=== PATIENT | female | born 1960 | race Caucasian/White ===

== ENCOUNTER 2017-02-04 09:30 | Day surgery (SDC) | payer OTHER ==
[2017-02-03 16:23] VITALS: BMI 27.9
[2017-02-04] MEDS ORDERED: Oxymetazoline HCl 0.05% ( 15 ML ) ONE (10:03)
[2017-02-04] MEDS ORDERED: Lidocaine 1% w/Epinephrine 1:200K 30 ML VIAL ONE (12:13)
[2017-02-04] MEDS ORDERED: Bacitracin Zinc Ointment 30 gm TUBE ONE (12:13)
[2017-02-04] MEDS ORDERED: Fentanyl 100 MCG/2 ML VIAL ONE ×2 (12:16→13:41)
[2017-02-04] MEDS ORDERED: Propofol 200 MG/20 ML VIAL ONE (12:27)
[2017-02-04] MEDS ORDERED: Dexamethasone 20 MG/5 ML VIAL ONE (12:27)
[2017-02-04] MEDS ORDERED: Lidocaine 1% PF 5 ML VIAL ONE (12:27)
[2017-02-04] MEDS ORDERED: Glycopyrrolate 0.2 MG/ML 5 ML SYRINGE ONE (12:27)
[2017-02-04] MEDS ORDERED: Ondansetron HCl/PF 4 MG/2 ML Vial ONE (12:27)
[2017-02-04] MEDS ORDERED: ePHEDrine/0.9% NaCl/PF SYRINGE 50 mg/10 ml ONE (12:27)
[2017-02-04 13:48] LABS: Hematocrit 46.6 % (36.0-47.0)
[2017-02-04] MEDS ORDERED: Ondansetron HCl/PF 4 MG/2 ML Vial IVP PRN (14:19)
[2017-02-04] MEDS ORDERED: Non-Formulary Medication 1 EACH PO PRN (14:19)
[2017-02-04] MEDS ORDERED: Promethazine HCl 25 MG/ML VIAL IM/IV PRN (14:19)
[2017-02-04] MEDS ORDERED: HYDROcodone/Acetaminophen 5/325 mg Tablet ONE (16:31)
--- NOTE | 2017-02-05 00:11 | OP ---
PREOPERATIVE DIAGNOSES: 1. Chronic rhinosinusitis. 2. Nasal septal deviation. 3. Bilateral inferior turbinate hypertrophy. 4. Nasal obstruction. POSTOPERATIVE DIAGNOSES: 1. Chronic rhinosinusitis. 2. Nasal septal deviation. 3. Bilateral inferior turbinate hypertrophy. 4. Nasal obstruction. PROCEDURES: 1. Bilateral endoscopic sinus surgery total ethmoidectomies. 2. Bilateral endoscopic sinus surgery maxillary antrostomies. 3. Bilateral endoscopic sinus surgery frontal sinusotomy. 4. Bilateral endoscopic sinus surgery sphenoidotomies. 5. Nasal septoplasty. 6. Bilateral inferior turbinate submucosal resection. SURGEON: Russel Becker M.D. ESTIMATED BLOOD LOSS: 50 mL COMPLICATIONS: None. ANESTHESIA: GETA. PROCEDURE IN DETAIL: The patient was taken to the operating room and placed supine on the table. Ge neral endotracheal anesthesia was obtained by the Anesthesia staff. Tube was secured in the left lo wer lip. The patient was then placed in the beach chair position, and Afrin pledgets were placed in the nasal cavity. Injections of 1% lidocaine with 1:100,000 epinephrine were made into the nasal sep ernesto as well as the inferior turbinates. The patient was then prepped and draped in standard surgical fashion for nasal surgery. Following this, the Afrin pledgets were removed. A [place] incision was made on the left nasal septum. Submucoperichondrial dissection was performed. The deviated portion s of the septum included portions of the cartilage and the bony septum. These isolated areas were re moved using three cutting rongeurs. There was noted to be a large dorsal and caudal strut left intac t for support of the nose. The mucoperichondrial flaps were then reapproximated using a 4-0 gut stit ch. Any straight pieces of cartilage were crushed prior to this and placed between the mucoperichond rial flaps. Following this, the inferior turbinates were then punctured with a submucosal coblation wand, and submucosal coblations were performed of multiple areas of the inferior portion of the anter ior inferior turbinate. Please note that the microdebrider was used to submucosally resect the anterior and inferior portions of the inferior turbinates bilaterally. Following this, the 0-degree scope was advanced into the mi ddle meatus where the middle turbinate was gently medialized using a [place] elevator. The uncinate pr ocess was identified and was anteriorly fractured using the ball-ended probe bilaterally. The uncina te process was then removed using the straight microdebrider and upbiting [place] forceps. Followi ng this, the natural maxillary ostia were identified and were gently widened using the straight [place] forceps and the microdebrider bilaterally. Following this, the ethmoidal bulla was identified a nd was punctured on its medial and inferior aspect and was removed. Following this, the grand lamell a was identified and was punctured into the posterior ethmoidal cells. Working from posterior to ant erior, the ethmoidal cells were opened in a mucosal-sparing technique. Following this, the sphenoid sinuses were approached through the ethmoidectomies and the sphenoid ostia were gently widened using the straight microdebrider medially and inferiorly bilaterally. Following this, a 45-degree scope an d the 40-degree upbiting microdebrider were then used to further resect the frontal sinus recess cell s and open the frontal sinus ostia bilaterally. Following this, the nasal cavity was irrigated. Laurita oPacks were placed within the middle meatus. [place] splints were placed and secured. The patient shelly erated the procedure well.
--- NOTE | 2017-02-05 07:56 | EKG ---
Test Reason : PREOP Blood Pressure : / mmHG Vent. Rate : 065 BPM Atrial Rate : 065 BPM P-R Int : 150 ms QRS Dur : 086 ms QT Int : 422 ms P-R-T Axes : 033 047 045 degrees QTc Int : 438 ms Normal sinus rhythm with sinus arrhythmia Low voltage QRS Borderline ECG No previous ECGs available Confirmed by FILEMON SCOTT, DR. Zamudio ([id number]) on 02/05/2017 7:56:01 AM Referred By: TATIANA Confirmed By:DR. Lizz COLBERT MD
== END 2017-02-04 17:30 | disposition home or self-care (01) ==
LOC: SDC 09:30
PROVIDERS: ATTEND Otolaryngology Plastic Surgery within the Head & Neck
PROC: 09TU8ZZ Resection of Right Ethmoid Sinus, Via Natural or Artificial Opening Endoscopic (ICD-10-PCS; principal; 2017-02-04)
PROC: 09BS8ZZ Excision of Right Frontal Sinus, Via Natural or Artificial Opening Endoscopic (ICD-10-PCS; principal; 2017-02-04)
PROC: 099Q8ZZ Drainage of Right Maxillary Sinus, Via Natural or Artificial Opening Endoscopic (ICD-10-PCS; principal; 2017-02-04)
PROC: 09CW8ZZ Extirpation of Matter from Right Sphenoid Sinus, Via Natural or Artificial Opening Endoscopic (ICD-10-PCS; principal; 2017-02-04)
PROC: 09CX8ZZ Extirpation of Matter from Left Sphenoid Sinus, Via Natural or Artificial Opening Endoscopic (ICD-10-PCS; principal; 2017-02-04)
PROC: 09RM47Z Replacement of Nasal Septum with Autologous Tissue Substitute, Percutaneous Endoscopic Approach (ICD-10-PCS; principal; 2017-02-04)
PROC: 09TV8ZZ Resection of Left Ethmoid Sinus, Via Natural or Artificial Opening Endoscopic (ICD-10-PCS; principal; 2017-02-04)
PROC: 099R8ZZ Drainage of Left Maxillary Sinus, Via Natural or Artificial Opening Endoscopic (ICD-10-PCS; principal; 2017-02-04)
PROC: 09BT8ZZ Excision of Left Frontal Sinus, Via Natural or Artificial Opening Endoscopic (ICD-10-PCS; principal; 2017-02-04)
PROC: 09TL8ZZ Resection of Nasal Turbinate, Via Natural or Artificial Opening Endoscopic (ICD-10-PCS; principal; 2017-02-04)
DX: J32.9 Chronic sinusitis, unspecified (principal); J34.2 Deviated nasal septum; J34.3 Hypertrophy of nasal turbinates; I10 Essential (primary) hypertension; E66.9 Obesity, unspecified; F41.9 Anxiety disorder, unspecified; Z68.27 Body mass index [BMI] 27.0-27.9, adult; Z79.899 Other long term (current) drug therapy; Z98.51 Tubal ligation status; Z90.49 Acquired absence of other specified parts of digestive tract; Z90.710 Acquired absence of both cervix and uterus; Z98.890 Other specified postprocedural states
CPT/HCPCS: 85014; 93005; 93010; 96374; J0131; J1100; J2001; J2405; J2704; J3010

== ENCOUNTER 2017-02-13 13:32 | Day surgery (SDC) | payer OTHER ==
[2017-02-13] MEDS ORDERED: Dexamethasone 20 MG/5 ML VIAL ONE (14:12)
[2017-02-13] MEDS ORDERED: PHENYLEPHRINE-NS 100 MCG/ML 10 ML SYRINGE ONE (14:12)
[2017-02-13] MEDS ORDERED: Propofol 200 MG/20 ML VIAL ONE (14:12)
[2017-02-13] MEDS ORDERED: Succinylcholine Chloride 20 MG/ML 10 ml SYRINGE FS ONE (14:12)
[2017-02-13] MEDS ORDERED: Lidocaine 1% PF 5 ML VIAL ONE (14:12)
[2017-02-13] MEDS ORDERED: Ondansetron HCl/PF 4 MG/2 ML Vial ONE (14:12)
[2017-02-13] MEDS ORDERED: Oxymetazoline HCl 0.05% ( 15 ML ) ONE (14:37)
[2017-02-13] MEDS ORDERED: Lidocaine 1% w/Epinephrine 1:200K 30 ML VIAL ONE (14:37)
[2017-02-13] MEDS ORDERED: EPINEPHrine 1 MG/ML AMP ONE (14:52)
[2017-02-13] MEDS ORDERED: Midazolam HCl 2 mg/2 ml Vial ONE (15:02)
[2017-02-13] MEDS ORDERED: Fentanyl 100 MCG/2 ML VIAL ONE ×3 (15:02→16:56)
--- NOTE | 2017-02-14 00:13 | OP ---
DATE OF PROCEDURE 02/13/2017. PREOPERATIVE DIAGNOSIS: Epistaxis. POSTOPERATIVE DIAGNOSIS: Epistaxis. PROCEDURE PERFORMED: Endoscopic control of epistaxis. SURGEON: Mike Correia M.D. BAR ROLLER: None. ANESTHESIA: General endotracheal anesthetic. ESTIMATED BLOOD LOSS: 150 mL FLUIDS: 700 mL crystalloid. COMPLICATIONS: None. Packing, x2, nasal tampons placed bilaterally in the middle meatus. FINDINGS: 1. Left anterior ethmoid arterial bleed. 2. Very oozy ethmoidal tissue on the right. INDICATIONS FOR SURGERY: The patient is a 56-year-old woman, who is approximately a week and a half to 2 weeks out from endoscopic sinus surgery and septoplasty. She had over 1 day of bleeding that wa s progressively worsening and brought to the operating room today for control of epistaxis. DESCRIPTION OF OPERATION: After properly identifying the patient, she was brought to the operating r oom and placed in the operating room table, placed on adequate general endotracheal anesthetic withou t difficulty. Time out was performed prior to beginning the procedure. The patient was prepped and draped in the usual sterile fashion. The nose was endoscopically examined. All clots were removed and then epinephrine pledgets placed pr imarily on the left side in the middle meatus region. This was allowed to sit for several minutes an d then removed. Obvious source of bleeding was noted on the left lateral superior operative site con sistent with an anterior ethmoid artery. This was cauterized with suction Bovie until it was no long er bleeding. I then suctioned out clots, really did not see any other source of bleeding on this lef t side. I placed more epinephrine pledgets and then addressed the other side. Opened up the middle meatus was very tight with a [place] elevator and got in there with a suction and suctioned out a lot o f clot, postoperative changes noted and there was some oozing, but no obvious active bleeding. This was not side that she was bleeding from over the last day or so either, but it was oozing up that I w ent ahead and put a pack of the nasal tampon pack in the middle meatus on this side as well. I allow ed the patient to set for several minutes suctioning and injecting Afrin into the nasal packing. The re was still a very mild trickle on that right side, but it was nearly completely stopped by the time that procedure was completed. The left side was completely dry. At this point, the patient turned back over to Anesthesia. The patient was awakened and extubated in the operating room and taken to [facility] recovery room in stable condition.
== END 2017-02-13 17:28 | disposition home or self-care (01) ==
LOC: ERS 13:32 → SDC 14:57
PROVIDERS: ATTEND Otolaryngology
PROC: 0W3Q8ZZ Control Bleeding in Respiratory Tract, Via Natural or Artificial Opening Endoscopic (ICD-10-PCS; principal; 2017-02-13)
DX: R04.0 Epistaxis (principal); Z79.899 Other long term (current) drug therapy; Z98.51 Tubal ligation status; Z90.49 Acquired absence of other specified parts of digestive tract; Z90.710 Acquired absence of both cervix and uterus; Z98.890 Other specified postprocedural states
CPT/HCPCS: 96374; 99284; J0171; J1100; J2001; J2250; J2405; J2704; J3010

== ENCOUNTER 2020-01-03 15:44 | Outpatient (CLI) | payer BC | END 2020-01-03 15:45 | disposition home or self-care (01) | LOC: CTENTCT 15:44 | PROVIDERS: ATTEND Otolaryngology Plastic Surgery within the Head & Neck | DX: J32.8 Other chronic sinusitis (principal) | CPT/HCPCS: 70486 ==